=== PATIENT | male | born 1970 | race Caucasian/White ===

== ENCOUNTER 2017-06-12 14:28 | Emergency (ER) | payer MEDICAID ==
--- NOTE | 2017-06-12 14:56 | Emergency Department Record ---
History of Present Illness - General Chief Complaint: Headache Migraine Stated Complaint: MIGRAINE Time Seen by Provider: 06/12/17 14:54 Source: Patient Mode of Arrival: Ambulatory Limitations: No limitations - History of Present Illness Initial Comments: 46 yo male presents with a headache. He states he has migraines. He in under the care of [facility] headache specialist Dr Wolfe (sp?). He states he has had a headache every single day for at least three years. His pain level fluctuates between 4/10 to 10/10. For the last week it has not been well controlled. He had recent cervical injections that only temporarily helped. His PCP is in [place]. He is light sensitive and mild nausea. No new injury. NO fever. No confusion. MD Complaint: Headache, "Migraine" -: Days(s) Onset Description: Gradual Location: Frontal Quality: Aching, Similar to previous headaches Consistency: Constant Improves With: Nothing Worsens With: Light Associated Symptoms: Photophobia Treatments Prior to Arrival: Prescription analgesic - Related Data Home Medications Medication Instructions Recorded Confirmed Last Taken Hydroxyzine HCl 25 mg PO QHS 06/12/17 06/12/17 1 Day Ago ~06/11/17 Losartan Potassium 50 mg PO DAILY 06/12/17 06/12/17 1 Day Ago ~06/11/17 Methocarbamol [Robaxin] 1 tab PO BID 06/12/17 06/12/17 1 Day Ago ~06/11/17 Allergies Allergy/AdvReac Type Severity Reaction Status Date / Time No Known Drug Intolerances Allergy Unknown HYPERSENSIT Verified 06/12/17 14:56 IVITY Review of Systems Constitutional: Denies: Chills, Fever, Malaise, Weakness Eyes: Denies: Eye discharge, Eye pain, Photophobia, Vision change ENT: Denies: Congestion, Ear pain, Epistaxis, Throat pain Respiratory: Denies: Cough, Dyspnea, Hemoptysis Cardiovascular: Denies: Chest pain, Palpitations, Syncope Endocrine: Denies: Fatigue, Polydipsia, Polyuria Gastrointestinal: Reports: Nausea. Denies: Diarrhea, Vomiting Genitourinary: Denies: Dysuria, Frequency, Urgency Musculoskeletal: Reports: Back pain, Neck pain. Denies: Arthralgia Skin: Denies: Bruising, Change in color, Rash Neurological: Reports: Headache. Denies: Confusion, Numbness, Paresthesias, Tingling, Tremors, Vertigo, Weakness Psychiatric: Denies: Anxiety Hematological/Lymphatic: Denies: Blood Clots, Easy bleeding, Easy bruising, Swollen glands Physical Exam - General General Appearance: Alert, Oriented x3, Cooperative, No acute distress Limitations: No limitations - Head Head exam: Normal inspection - Eye Eye exam: Normal appearance, PERRL, EOMI. negative: Conjunctival injection, Nystagmus, Periorbital swelling, Scleral icterus - ENT ENT exam: Normal exam, Mucous membranes moist Ear exam: Normal external inspection Nasal Exam: Normal inspection Mouth exam: Normal external inspection Teeth exam: Normal inspection Throat exam: Normal inspection - Neck Neck exam: Normal inspection, Full ROM. negative: Tenderness - Respiratory Respiratory exam: Normal lung sounds bilaterally. negative: Respiratory distress - Cardiovascular Cardiovascular Exam: Regular rate, Normal rhythm, Normal heart sounds - GI/Abdominal GI/Abdominal exam: Soft. negative: Tenderness - Rectal Rectal exam: Deferred - exam: Deferred - Extremities Extremities exam: Normal inspection, Full ROM, Normal capillary refill. negative: Tenderness - Back Back exam: Reports: Normal inspection, Full ROM. Denies: Muscle spasm, Rash noted, Tenderness - Neurological Neurological exam: Alert, CN II-XII intact, Normal gait, Oriented X3, Reflexes normal. negative: Altered, Motor sensory deficit - Psychiatric Psychiatric exam: Normal affect, Normal mood - Skin Skin exam: Dry, Intact, Normal color, Warm Course - Reevaluation(s) Reevaluation #1: The patient is doing much better The headache is well controlled The nausea is gone and he is no longer light sensitive I asked him to call his headache specialist for very close follow up 06/12/17 16:43 Disposition Disposition: Discharge Clinical Impression: Migraine Disposition: Home, Self-Care Condition: (1) Good Instructions: Migraine Headache (ED) Additional Instructions: Call your headache specialist today to schedule close follow up of your chronic headache Rest and stay well hydrated Forms: Patient Portal Access Time of Disposition: 16:44 Quality - Quality Measures Quality Measures: Headache (All Ages) - Headache: Neuroimaging Quality Measure: Measure #419: Overuse of Neuroimaging ICD10 Codes Entered: Yes Neurological Exam: Patient had a normal neurological exam. [G9535] Headache: Use of Neuroimaging: < CTA, CT, MRA or MRI was NOT ordered > [G9534] - Blood Pressure Screening Does Patient Have Any of the Following: No Blood Pressure Classification: Normal BP Reading Systolic Measurement: 109 Diastolic Measurement: 69 Screening for High Blood Pressure: < Normal BP, F/U Not Required > [G0225]
[2017-06-12] MEDS ORDERED: 0.9 % SODIUM CHLORIDE 1,000 ML BAG IV ONE (15:15)
[2017-06-12] MEDS ORDERED: DIPHENHYDRAMINE HCL IV 50 MG/ML VIAL IVP ONE (15:15)
[2017-06-12] MEDS ORDERED: METOCLOPRAMIDE HCL 10 MG/2 ML VIAL IVP ONE (15:15)
[2017-06-12] MEDS ORDERED: KETOROLAC 30 MG/ML VIAL IVP ONE (15:15)
== END 2017-06-12 16:55 | disposition home or self-care (01) ==
LOC: ER 14:28
DX: G43.909 Migraine, unspecified, not intractable, without status migrainosus (principal); R11.0 Nausea; H53.149 Visual discomfort, unspecified
CPT/HCPCS: 99284 ×2; 96374; 96375; J1885; J1200; J2765; J7030

== ENCOUNTER 2017-07-10 12:06 | Inpatient (IN) | payer MEDICAID ==
[2017-07-10] MEDS ORDERED: 0.9 % SODIUM CHLORIDE 1,000 ML BAG IV ONE ×2 (12:33→13:26)
[2017-07-10] MEDS ORDERED: ONDANSETRON HCL IV 4 MG/2 ML VIAL IVP ONE (12:33)
[2017-07-10] MEDS ORDERED: MORPHINE SULFATE 4MG/ML PREFILLED SYRINGE IVP ONE (12:34)
--- NOTE | 2017-07-10 12:39 | Emergency Department Record ---
History of Present Illness - General Chief Complaint: Abdominal Pain Stated Complaint: ABD PAIN Time Seen by Provider: 07/10/17 12:33 Source: Patient Mode of Arrival: Ambulatory Limitations: No limitations - History of Present Illness Initial Comments: 46 yo male presents with nausea, vomiting and upper abdominal pain that started on . He has been having dry heaves since that time. He reports a prior history three years ago of a Libby Fundoplication with Dr Tong. The pain is in the epigastric area. His last BM was this morning. No fevers. No blood in the stools or in the dry heaves. He has migraines and chronic neck pain as well. These symptoms have been worse since the nausea, vomiting and abdominal pain started. MD Complaint: Abdominal pain Onset/Timin -: Days(s) Location: Epigastric, RUQ Radiation: None Migration to: Epigastric Severity scale (1-10): 10 Quality: Sharp Consistency: Constant Improves With: Nothing Worsens With: Nothing Associated Symptoms: Nausea, Vomiting - Related Data Allergies Allergy/AdvReac Type Severity Reaction Status Date / Time No Known Drug Intolerances Allergy Unknown HYPERSENSIT Verified 07/10/17 12:26 [employer] Travel Screening - Travel/Exposure Within Last 30 Days Have you traveled within the last 30 days?: No Review of Systems Constitutional: Reports: Weakness. Denies: Chills, Fever, Malaise Eyes: Denies: Eye discharge, Eye pain, Photophobia, Vision change ENT: Denies: Congestion, Throat pain Respiratory: Denies: Cough, Dyspnea, Hemoptysis, Wheezes Cardiovascular: Denies: Chest pain, Palpitations, Syncope Endocrine: Denies: Fatigue, Polydipsia, Polyuria Gastrointestinal: Reports: Abdominal pain, Nausea, Vomiting. Denies: Diarrhea, Hematemesis, Hematochezia Genitourinary: Denies: Dysuria, Frequency, Hematuria Musculoskeletal: Denies: Arthralgia, Back pain, Joint swelling, Myalgia Skin: Denies: Bruising, Change in color, Rash Neurological: Reports: Headache (migraines). Denies: Numbness, Weakness Psychiatric: Reports: Anxiety Hematological/Lymphatic: Denies: Blood Clots, Easy bleeding, Easy bruising, Swollen glands Past Medical History - SOCIAL HISTORY Smoking Status: Never smoker Alcohol Use: None Drug Use: None - RESPIRATORY Hx Respiratory Disorders: No - CARDIOVASCULAR Hx Cardio Disorders: Yes Hx Hypertension: Yes - NEURO Hx Neuro Disorders: Yes Hx Headaches: Yes - GI Hx GI Disorders: Yes Hx Reflux: Yes Hx Hiatal Hernia: Yes Hx Ulcer: Yes - Hx Genitourinary Disorders: No - ENDOCRINE Hx Endocrine Disorders: No Hx Diabetes: No Hx Thyroid Disease: No - MUSCULOSKELETAL Hx Arthritis: Yes - PSYCH Hx Psych Problems: Yes Hx Anxiety: Yes Hx Depression: Yes - HEMATOLOGY/ONCOLOGY Hx Hematology/Oncology Disorders: No Family Medical History Any Significant Family History?: No Physical Exam - General General Appearance: Alert, Oriented x3, Cooperative, No acute distress, Other ( Dry heaving during H and P) Limitations: No limitations - Head Head exam: Atraumatic, Normal inspection - Eye Eye exam: Normal appearance, PERRL. negative: Conjunctival injection, Scleral icterus - ENT ENT exam: Normal exam Ear exam: Normal external inspection Nasal Exam: Normal inspection Mouth exam: Normal external inspection Teeth exam: Normal inspection Throat exam: Normal inspection - Neck Neck exam: Normal inspection, Full ROM. negative: Tenderness - Respiratory Respiratory exam: Normal lung sounds bilaterally. negative: Respiratory distress - Cardiovascular Cardiovascular Exam: Regular rate, Normal rhythm, Normal heart sounds - GI/Abdominal GI/Abdominal exam: Soft, Tenderness (epigatric tenderness, The abdomen is soft and non distended). negative: Distended, Guarding - Rectal Rectal exam: Deferred - exam: Deferred - Extremities Extremities exam: Normal inspection, Full ROM, Normal capillary refill. negative: Tenderness - Back Back exam: Reports: Normal inspection, Full ROM. Denies: Muscle spasm, Rash noted, Tenderness - Neurological Neurological exam: Alert, Normal gait, Oriented X3 - Psychiatric Psychiatric exam: Normal affect, Normal mood - Skin Skin exam: Dry, Intact, Normal color, Warm Course Vital Signs 07/10/17 12:28 Temperature 97.8 F Pulse Rate 95 H Respiratory 24 Rate Blood Pressure 120/94 Pulse Ox 99 - Reevaluation(s) Reevaluation #1: 07/10/17 13:00 CBC reviewed WBC is 16.3 07/10/17 13:27 The HCO3 is 17 with AG 27 The CMP is otherwise normal The Lipase is normal 07/10/17 14:[address] scan was negative for acute process. 07/10/17 15:01 The results were reviewed with the patient and his family He is much improved but still with nausea. Given his dehydration on the labs I recommend admission, hydration and re-evaluation slowly advancing PO as toleration. Medical Decision Making - Lab Data Result diagrams: 07/10/17 12:20 07/10/17 12:20 Disposition Disposition: Admit Clinical Impression: Nausea and vomiting, Dehydration, Abdominal pain Disposition: Still a Patient at [facility] Decision to Admit: Admit from ER Decision to Admit Date: 07/10/17 Decision to Admit Time: 15:02 Condition: (2) Stable Time of Disposition: 15:02 Quality - Quality Measures Quality Measures: Headache (All Ages) - Headache: Neuroimaging Quality Measure: Measure #419: Overuse of Neuroimaging ICD10 Codes Entered: Yes Neurological Exam: Patient had a normal neurological exam. [G9535] Headache: Use of Neuroimaging: < CTA, CT, MRA or MRI was NOT ordered > [G9534] - Blood Pressure Screening Does Patient Have Any of the Following: Active Dx of HTN Blood Pressure Classification: Hypertensive Reading Systolic Measurement: 120 Diastolic Measurement: 94 Screening for High Blood Pressure: Patient Exclusion, Hx of HTN [G9744]
[2017-07-10 12:49] LABS: HEMATOCRIT 48.6 % (42.0-52.0); HEMOGLOBIN 17.2 gm/dl (14.0-18.0); MEAN CELL VOLUME 88.2 fl (81-97); MEAN CORPUSCULAR HEMOGLOBIN 31.2 pg (27-33); MEAN CORPUSCULAR HGB CONC 35.4 g/dl (32-36); MEAN PLATELET VOLUME 11.6 fl (7.4-10.4); PLATELET COUNT 299 K/uL (130-400); RED BLOOD COUNT 5.51 M/uL (4.40-5.70); RED CELL DISTRIBUTION WIDTH 13.1 % (11.5-14.5); WHITE BLOOD COUNT W/O DIFF 16.3 K/uL (4.2-12.2)
[2017-07-10 13:08] LABS: BLOOD UREA NITROGEN 15 mg/dL (6-20); CREATININE 0.9 mg/dL (0.7-1.2); EST GLOMERULAR FILTRATION RATE > 60 mL/min
[2017-07-10 13:09] LABS: TOTAL PROTEIN 7.8 g/dL (6.6-8.7)
[2017-07-10 13:11] LABS: GLUCOSE,RANDOM 119 mg/dL (74-109)
[2017-07-10 13:13] LABS: ALT/SGPT 12 U/L (<41)
[2017-07-10 13:14] LABS: ALBUMIN 5.2 g/dL (4.0-5.0); ALKALINE PHOSPHATASE 85 U/L (40-129); AST/SGOT 19 U/L (10.0-50.0); LIPASE 48 U/L (13-60)
[2017-07-10] MEDS ORDERED: MECLIZINE 25 MG TABLET PO ONE (14:31)
[2017-07-10] MEDS ORDERED: 0.9 % SODIUM CHLORIDE 1000ML 1,000 ML IV PRN (17:27)
[2017-07-10] MEDS ORDERED: MORPHINE SULFATE 4MG/ML PREFILLED SYRINGE IVP PRN (17:41)
[2017-07-10] MEDS ORDERED: CYCLOBENZAPRINE 10MG TABLET PO PRN (17:51)
--- NOTE | 2017-07-10 18:01 | History & Physical ---
History of Present Illness - Date of Service Date of Service for History & Physical: 07/10/17 - History of Present Illness Admitting Diagnosis: nausea, vomting, abdominal pain History of Present Illness: 46 yo male presents for N/V and epigastric pain x 4 days. PMH Libby Fundoplication (Dr Tong), [address] Mcmillan, chronic IGLESIAS. Pt reports nausea and vomiting bile since . Unable to burp since Libby fundoplicaiton. Reports extreme wretching needed to bring up bile and abd pain r /t to this. No sick contacts. Denies blood in stools or emesis. ER 97.8F, HR 94, RR 24, 99% RA B 120/94 WBC 16.3, Hgb 17.2, Hct 48.6, Plt 299 NA 143, K 4.3, CL 99, CO2 17, Anion gap 27, BUn 15, creatinine 0.9, GFR >60, glucose 119, Lipase 48 LFT WNL UA pending 2L NS bolus, 4mg morphine, 4mg Zofran IVP Abd CT audio clip reviewed, no acute process 07/11/17 Pt in mild distress, appears dehydrated- dry lips, pale, warm and dry. Abd TTP epigastric and RUQ. Bowel sounds hypoactive. POC, NPO except ice chips tonight, D5NS@125, protinix IVPB BID, tylenol IVPB, zofran 4mg and morphine 2mg IVPB PRN q4 hrs. PCP Fatmata Wang NP Specialist: Zayra (GI) Jean Pierre ([facility]), Deyanira (gallbladder removal) Travel Screening - Travel/Exposure Within Last 30 Days Have you traveled within the last 30 days?: No Review of Systems Constitutional: Reports: Weakness. Denies: Chills, Fever, Malaise Eyes: Denies: Eye discharge, Eye pain, Photophobia, Vision change ENT: Denies: Congestion, Throat pain Respiratory: Denies: Cough, Dyspnea, Hemoptysis, Wheezes Cardiovascular: Denies: Chest pain, Palpitations, Syncope Endocrine: Denies: Fatigue, Polydipsia, Polyuria Gastrointestinal: Reports: Abdominal pain, Nausea, Vomiting. Denies: Diarrhea, Hematemesis, Hematochezia Genitourinary: Denies: Dysuria, Frequency, Hematuria Musculoskeletal: Denies: Arthralgia, Back pain, Joint swelling, Myalgia Skin: Denies: Bruising, Change in color, Rash Neurological: Reports: Headache (migraines- chronic). Denies: Numbness, Weakness Psychiatric: Reports: Anxiety Hematological/Lymphatic: Denies: Blood Clots, Easy bleeding, Easy bruising, Swollen glands Past Medical History - SOCIAL HISTORY Smoking Status: Never smoker Alcohol Use: None Drug Use: None - RESPIRATORY Hx Respiratory Disorders: No - CARDIOVASCULAR Hx Cardio Disorders: Yes Hx Hypertension: Yes - NEURO Hx Neuro Disorders: Yes Hx Headaches: Yes - GI Hx GI Disorders: Yes Hx Reflux: Yes Hx Hiatal Hernia: Yes Hx Ulcer: Yes - Hx Genitourinary Disorders: No - ENDOCRINE Hx Endocrine Disorders: No Hx Diabetes: No Hx Thyroid Disease: No - MUSCULOSKELETAL Hx Arthritis: Yes - PSYCH Hx Psych Problems: Yes Hx Anxiety: Yes Hx Depression: Yes - HEMATOLOGY/ONCOLOGY Hx Hematology/Oncology Disorders: No Family Medical History Any Significant Family History?: No H&P Meds/Allergies - Allergies Allergies: Allergies Allergy/AdvReac Type Severity Reaction Status Date / Time No Known Drug Intolerances Allergy Unknown HYPERSENSIT Verified 07/10/17 12:26 IVITY - Active Medications Active Medications: Current Medications Acetaminophen (Ofirmev) 1,000 mg in 100 mls @ 400 mls/hr IVPB Q6H ALEXSANDRA Dextrose/Sodium Chloride () 1,000 mls @ 125 mls/hr IV .Q8H PRN PRN Reason: LARGE VOLUME IV Non-Formulary Medication (Hydroxyzine Hcl [Hydroxyzine Hcl]) 25 mg PO QHS [facility] Non-Formulary Medication (Losartan Potassium [Losartan Potassium]) 50 mg PO DAILY [facility] Non-Formulary Medication (Methocarbamol [Robaxin]) 1 tab PO BID ALEXSANDRA Ondansetron HCl (Zofran) 4 mg IVP Q4H PRN PRN Reason: NAUSEA Pantoprazole Sodium (Protonix Iv) 40 mg IV Q12H ALEXSANDRA Physical Exam - Vital Signs Vital Signs: Vital Signs - Last 24 Hrs Temp Pulse Pulse Resp BP BP Pulse Ox 07/10/17 16:13 91/51 07/10/17 15:41 73 18 86/48 99 07/10/17 14:23 74 24 97/50 94 L 07/10/17 12:28 97.8 F 95 H 24 120/94 99 - General General Appearance: Alert, Oriented x3, Cooperative, Mild distress, Other (Dry heaving during H and P) Limitations: No limitations - Head Head exam: Atraumatic, Normal inspection - Eye Eye exam: Normal appearance, PERRL. negative: Conjunctival injection, Scleral icterus - ENT ENT exam: Normal exam Ear exam: Normal external inspection Nasal Exam: Normal inspection Mouth exam: Normal external inspection Teeth exam: Normal inspection Throat exam: Normal inspection - Neck Neck exam: Normal inspection, Full ROM. negative: Tenderness - Respiratory Respiratory exam: Normal lung sounds bilaterally. negative: Respiratory distress - Cardiovascular Cardiovascular Exam: Regular rate, Normal rhythm, Normal heart sounds Peripheral Pulses: 2+: Radial (R), Radial (L), Dorsalis Pedis (R), Dorsalis Pedis (L) - GI/Abdominal GI/Abdominal exam: Soft, Tenderness (epigatric tenderness, The abdomen is soft and non distended). negative: Distended, Guarding - Rectal Rectal exam: Deferred - exam: Deferred - Extremities Extremities exam: Normal inspection, Full ROM, Normal capillary refill. negative: Tenderness - Back Back exam: Reports: Normal inspection, Full ROM. Denies: Muscle spasm, Rash noted, Tenderness - Neurological Neurological exam: Alert, Normal gait, Oriented X3 - Psychiatric Psychiatric exam: Normal affect, Normal mood - Skin Skin exam: Dry, Intact, Normal color, Warm Results - Labs Result Diagrams: 07/10/17 12:20 07/10/17 12:20 Labs Last 24 Hours: Laboratory Results - last 24 hr 07/10/17 07/10/17 12:20 12:20 WBC 16.3 H RBC 5.51 Hgb 17.2 Hct 48.6 MCV 88.2 MCH 31.2 MCHC 35.4 RDW 13.1 Plt Count 299 MPV 11.6 H Neutrophils % 81.0 H Eosinophils % Not Reportable Basophils % Not Reportable Lymphocytes 13.0 L Monocytes 5.0 Eosinophil Count 1.0 Sodium 143 Potassium 4.3 Chloride 99 Carbon Dioxide 17.0 L Anion Gap 27.0 H BUN 15 Creatinine 0.9 Estimated GFR > 60 Random Glucose 119 H Calcium 10.0 Total Bilirubin 0.60 AST 19 ALT 12 Alkaline Phosphatase 85 Total Protein 7.8 Albumin 5.2 H Globulin 2.6 Albumin/Globulin Ratio 2.0 H Lipase 48 - Imaging and Cardiology CT scan - abdomen Status: Report reviewed (audio clip reviewed) VTE H&P Assessment - Risk for VTE Risk for VTE: Yes Risk Level: Very Low Risk Assessment Date: 07/10/17 Risk Assessment Time: 18:07 VTE Orders Placed or Will Be Placed: No VTE Reason for No Prophylaxis: Not Indicated Plan - Inpatient Certification Inpatient Certification: Admit to inpatient care: Based on my medical assessment, after consideration of patient's risk factors (age, co-morbidities and patient presenting symptoms and acuity), I expect that this patient will remain in the hospital greater than or equal to two midnights and that the services needed warrant inpatient care because: Patient Risk Factors: dehydration, electrolyte monitoring, IV medication mgt Estimated length of stay: The patient may reasonably be expected to be discharged or transferred to a hospital within 96 hours after admission to [facility]. Services needed: IVF, IV medications, lab monitoring Post hospital care (if known): [] I certify that my determination is in accordance with my understanding of Medicare requirements for reasonable and necessary inpatient services. 07/10/17 18:02 - Detailed Diagnosis and Plan (1) Abdominal pain Current Visit: Yes Status: Acute Base Code: R10.9 - UNSPECIFIED ABDOMINAL PAIN Comment: 07/10/17 -epigastric tenderness and pain -zofran, morphine IVP PRN -protonix IVPB BID -abd CT audio clip negative for acute process (2) Dehydration Current Visit: Yes Status: Acute Base Code: E86.0 - DEHYDRATION Comment: -D5NS@125 -repeat AM labs -NPO except ice chips -CLD in the AM (3) Nausea and vomiting Current Visit: Yes Status: Acute Base Code: R11.2 - NAUSEA WITH VOMITING, UNSPECIFIED Comment: 07/10/17 -Zofran 4mg IVP PRN -NPO, advance in the AM CLD -UA pending
[2017-07-10] MEDS: PANTOPRAZOLE SODIUM IV 40 MG VIAL IV SCH (18:55)
[2017-07-10] MEDS: ACETAMINOPHEN 1,000 MG/100 ML BTL IVPB SCH (18:58)
[2017-07-10] MEDS: DEXTROSE 5 % AND 0.9 % NACL 1,000 ML IV PRN (19:00)
[2017-07-10] MEDS ORDERED: HYDROXYZINE PAMOATE 25 MG CAPSULE PO SCH (22:00)
[2017-07-11] MEDS: ACETAMINOPHEN 1,000 MG/100 ML BTL IVPB SCH ×4 (00:25→17:56)
[2017-07-11 02:23] LABS: URINE APPEARANCE CLEAR; URINE BILIRUBIN SMALL (NEGATIVE); URINE BLOOD NEGATIVE (NEGATIVE); URINE COLOR YELLOW; URINE GLUCOSE (UA) NEGATIVE (NEGATIVE); URINE KETONE 40 mg/dL (NEGATIVE); URINE LEUKOCYTE ESTERASE NEGATIVE (NEGATIVE); URINE NITRITE NEGATIVE (NEGATIVE); URINE PROTEIN NEGATIVE (NEGATIVE); URINE UROBILINOGEN 0.2 E.U./dL (0.20 - 1.00)
[2017-07-11] MEDS: DEXTROSE 5 % AND 0.9 % NACL 1,000 ML IV PRN ×3 (03:35→19:48)
[2017-07-11] MEDS: PANTOPRAZOLE SODIUM IV 40 MG VIAL IV SCH ×2 (06:38→17:56)
[2017-07-11 07:08] LABS: BASO % 0.6 % (0-6); EOS % 2.6 % (0-6); GRAN % 54.1 % (47-80); HEMATOCRIT 39.7 % (42.0-52.0); HEMOGLOBIN 13.2 gm/dl (14.0-18.0); LYMPH % 30.8 % (16-45); MEAN CELL VOLUME 91.9 fl (81-97); MEAN CORPUSCULAR HGB CONC 33.2 g/dl (32-36); MEAN PLATELET VOLUME 10.5 fl (7.4-10.4); MONO % 11.9 % (0-9); PLATELET COUNT 199 K/uL (130-400); RED BLOOD COUNT 4.32 M/uL (4.40-5.70); WHITE BLOOD COUNT W/O DIFF 5.5 K/uL (4.2-12.2)
--- NOTE | 2017-07-11 07:15 | CT SCAN REPORT ---
EXAM: EMERGENCY CT OF THE ABDOMEN AND PELVIS WITHOUT CONTRAST HISTORY: UPPER ABDOMINAL PAIN, VOMITING, PRIOR AIDA FUNDOPLICATION FOUR YEARS AGO. CHOLECYSTECTOMY. TECHNIQUE: Axial CT scan of the abdomen and pelvis was performed without oral or IV contrast. Comparison: No prior CT of the abdomen or pelvis with which to compare. FINDINGS: The gallbladder is not identified consistent with the surgical history. There is a single tiny calcification in the upper pole of the right kidney likely representing a currently nonobstructing intrarenal calculus on the right. None seen on the left. No hydronephrosis or hydroureter seen on either side with no definite ureteral calculus seen on either side and no bladder calculus evident. There is some mild prostate calcification present. Evaluation of the bowel and viscera is considerably limited without oral cor IV contrast. Given this limitation, no definite hepatic, splenic, adrenal, pancreatic, or renal mass identified. No appendicitis evident. No free intraperitoneal air or free intraperitoneal fluid identified. IMPRESSION: 1. SINGLE TINY NONOBSTRUCTING CALCULUS IN THE RIGHT KIDNEY. NONE SEEN ON THE LEFT. 2. SOME PROSTATE CALCIFICATION. 3. POSTOP CHOLECYSTECTOMY. 4. THE APPENDIX APPEARS NEGATIVE. NO FREE AIR OR FREE FLUID EVIDENT. JOB NUMBER: [id number] [facility]
[2017-07-11 07:16] LABS: MEAN CORPUSCULAR HEMOGLOBIN 30.5 pg (27-33)
[2017-07-11 07:27] LABS: ALB/GLOB RATIO 2.3 (1.1-1.8); ALBUMIN 3.5 g/dL (4.0-5.0); ALKALINE PHOSPHATASE 59 U/L (40-129); ALT/SGPT 67 U/L (<41); AST/SGOT 57 U/L (10.0-50.0); BLOOD UREA NITROGEN 9 mg/dL (6-20); CREATININE 0.8 mg/dL (0.7-1.2); EST GLOMERULAR FILTRATION RATE > 60 mL/min; GLUCOSE,RANDOM 97 mg/dL (74-109)
[2017-07-11] MEDS: ONDANSETRON HCL IV 4 MG/2 ML VIAL IVP PRN ×2 (08:42→19:52)
[2017-07-11] MEDS ORDERED: PANTOPRAZOLE SODIUM IV 40 MG VIAL IV SCH (10:00)
[2017-07-11] MEDS ORDERED: LOSARTAN POTASSIUM 25 MG TABLET PO SCH (10:00)
--- NOTE | 2017-07-11 19:54 | Discharge Summary ---
Providers Discharge Summary Date: 07/11/17 Date of admission: 07/10/17 17:00 Expected Date of Discharge: 07/11/17 Attending physician: MARSHA CROWLEY Primary care physician: RADHA WANG N.P. Physical Exam - Vital Signs Vital Signs: Vital Signs - Last 24 Hrs Temp Pulse Resp BP BP Pulse Ox 07/11/17 17:00 97.6 F 49 L 18 111/61 98 07/11/17 11:16 97.3 F L 100/71 07/11/17 08:36 16 07/11/17 08:09 97.3 F L 80 16 100/71 99 07/11/17 01:00 98.1 F 66 16 93/52 98 - General General Appearance: Alert, Oriented x3, Cooperative, Mild distress Limitations: No limitations - Head Head exam: Atraumatic, Normal inspection - Eye Eye exam: Normal appearance, PERRL. negative: Conjunctival injection, Scleral icterus - ENT ENT exam: Normal exam Ear exam: Normal external inspection Nasal Exam: Normal inspection Mouth exam: Normal external inspection Teeth exam: Normal inspection Throat exam: Normal inspection - Neck Neck exam: Normal inspection, Full ROM. negative: Tenderness - Respiratory Respiratory exam: Normal lung sounds bilaterally. negative: Respiratory distress - Cardiovascular Cardiovascular Exam: Regular rate, Normal rhythm, Normal heart sounds Peripheral Pulses: 2+: Radial (R), Radial (L), Dorsalis Pedis (R), Dorsalis Pedis (L) - GI/Abdominal GI/Abdominal exam: Soft, Tenderness (epigatric tenderness, The abdomen is soft and non distended). negative: Distended, Guarding - Rectal Rectal exam: Deferred - exam: Deferred - Extremities Extremities exam: Normal inspection, Full ROM, Normal capillary refill. negative: Tenderness - Back Back exam: Reports: Normal inspection, Full ROM. Denies: Muscle spasm, Rash noted, Tenderness - Neurological Neurological exam: Alert, Normal gait, Oriented X3 - Psychiatric Psychiatric exam: Normal affect, Normal mood - Skin Skin exam: Dry, Intact, Normal color, Warm Hospitalization - Hospitalization Admission Diagnosis: nausea, vomting, abdominal pain - Problem List/Discharge Diagnosis (1) Abdominal pain Current Visit: Yes Status: Acute Base Code: R10.9 - UNSPECIFIED ABDOMINAL PAIN Comment: 07/11/17 -epigastric tenderness and pain -zofran, morphine IVP PRN -protonix IVPB BID -abd CT audio clip negative for acute process -Pt. is still unable to tolerate clear liquids, spoke with Dr. Tong ( surgeon for pt's libby fundoplication) and he recommends transfer to [facility] for upper GI, he will assume care. (2) Dehydration Current Visit: Yes Status: Acute Base Code: E86.0 - DEHYDRATION Comment: -D5NS@125 -pos. ketones on UA, negative for infection -Pt. not tolerating clear liquids (3) Nausea and vomiting Current Visit: Yes Status: Acute Base Code: R11.2 - NAUSEA WITH VOMITING, UNSPECIFIED Comment: 07/11/17 -Zofran 4mg IVP PRN -Clear liquids- pt. is not tolerating clear liquids well at this time, worsening nausea. No vomiting, but pt. is dry heaving. -Plan to transfer to [facility] and Dr. Tong will assume care (4) Full code status Current Visit: Yes Status: Acute Base Code: Z78.9 - OTHER SPECIFIED HEALTH STATUS Comment: 07/11/17: pt. remains full code status - Disposition Transfer to [facility], Dr. Tong accepting care - Hospitalization Course Disposition: Acute Care Hospital Transfer Hospital Course: 46 yo male presents for N/V and epigastric pain x 4 days. PMH Libby Fundoplication (Dr Tong), [address] Mcmillan, chronic IGLESIAS. Pt reports nausea and vomiting bile since . Unable to burp since Libby fundoplicaiton. Reports extreme wretching needed to bring up bile and abd pain r /t to this. No sick contacts. Denies blood in stools or emesis. ER 97.8F, HR 94, RR 24, 99% RA B 120/94 WBC 16.3, Hgb 17.2, Hct 48.6, Plt 299 NA 143, K 4.3, CL 99, CO2 17, Anion gap 27, BUn 15, creatinine 0.9, GFR >60, glucose 119, Lipase 48 LFT WNL UA pending 2L NS bolus, 4mg morphine, 4mg Zofran IVP Abd CT audio clip reviewed, no acute process. 07/10/17 Pt in mild distress, appears dehydrated- dry lips, pale, warm and dry. Abd TTP epigastric and RUQ. Bowel sounds hypoactive. POC, NPO except ice chips tonight, D5NS@125, protinix IVPB BID, tylenol IVPB, zofran 4mg and morphine 2mg IVPB PRN q4 hrs. 07/11/17 Pt. remains in mild distress. He had tried clear liquids throughout the day and he has been unable to tolerate without worsening abdominal pain and nausea. He has also tried to ambulate to possibly relieve abdominal pressure with no relief. Vital signs remain stable. Continuing D5NS @ 125/hr. I spoke with pt. regarding his past GI history and libby fundoplication- pt. states that he has required dilitations about every 3 months since his libby, he is unsure of the date of his last dilitation. I called Dr. Tong and discussed the case with him, he recommends transfer to [facility] for care and pursue an upper GI series (GI unavailable at [facility] until 07/20). Planning transfer this evening. PCP Fatmata Wang NP Specialist: Zayra (GI) Jean Pierre ([facility] [place] [facility]), Deyanira (gallbladder removal) Procedures: Imaging and X-Rays 07/10/17 12:34 ABDOMEN/PELVIS WO CONTRAST [CT] Stat Abnormal Labs: Abnormal Lab Results 07/10/17 07/10/17 07/11/17 Range/Units 12:20 12:20 02:24 WBC 16.3 H (4.2-12.2) K/uL RBC (4.40-5.70) M/uL Hgb (14.0-18.0) gm/dl Hct (42.0-52.0) % MPV 11.6 H (7.4-10.4) fl Neutrophils % 81.0 H (47-80) % Monocytes % (0-9) % Lymphocytes 13.0 L (16-45) % Carbon Dioxide 17.0 L (22-29) mmol/L Anion Gap 27.0 H (7-16) Random Glucose 119 H (74-109) mg/dL Calcium (8.6-10.0) mg/dL AST (10.0-50.0) U/L ALT (<41) U/L Total Protein (6.6-8.7) g/dL Albumin 5.2 H (4.0-5.0) g/dL Albumin/Globulin Ratio 2.0 H (1.1-1.8) Urine Ketones 40 mg/dl H (NEGATIVE) Urine Bilirubin Small H (NEGATIVE) 07/11/17 07/11/17 Range/Units 06:58 06:58 WBC (4.2-12.2) K/uL RBC 4.32 L (4.40-5.70) M/uL Hgb 13.2 L (14.0-18.0) gm/dl Hct 39.7 L (42.0-52.0) % MPV 10.5 H (7.4-10.4) fl Neutrophils % (47-80) % Monocytes % 11.9 H (0-9) % Lymphocytes (16-45) % Carbon Dioxide (22-29) mmol/L Anion Gap (7-16) Random Glucose (74-109) mg/dL Calcium 8.2 L (8.6-10.0) mg/dL AST 57 H (10.0-50.0) U/L ALT 67 H (<41) U/L Total Protein 5.0 L (6.6-8.7) g/dL Albumin 3.5 L (4.0-5.0) g/dL Albumin/Globulin Ratio 2.3 H (1.1-1.8) Urine Ketones (NEGATIVE) Urine Bilirubin (NEGATIVE) Condition at Discharge: (2) Stable VTE Discharge VTE Reason For No Overlap Therapy: Not Indicated (Mobility not impaired) Discharge Medications - Discharge Medications Home Medications: Ambulatory Orders Hydroxyzine HCl 25 mg PO QHS 06/12/17 [Last Taken 1 Day Ago ~06/11/17] Losartan Potassium 50 mg PO DAILY 06/12/17 [Last Taken 1 Day Ago ~06/11/17] Methocarbamol [Robaxin] 1 tab PO BID 06/12/17 [Last Taken 1 Day Ago ~06/11/17] Ondansetron [Zuplenz] 8 mg PO Q8HR 07/10/17 [Last Taken Unknown] Discharge Plan - Discharge Instructions Activity at Discharge: Resume Usual Activities As Tolerated Diet at Discharge: Other (clear liquid) Quality Measures - Quality Measures Quality Measures: Documentation of Current Medications in Medical Record, Screening for High Blood Pressure and F/U Documented - Current Medications Quality Measure: Measure #130: Documentation of Current Medications Documentation of Current Medications: <Current Medications Documented/Reviewed> [G0480] - Blood Pressure Screening Quality Measure: Screening for High Blood Pressure and Follow-Up Documented Does Patient Have Any of the Following: No Blood Pressure Classification: Normal BP Reading Systolic Measurement: 100 Diastolic Measurement: 71 Screening for High Blood Pressure: < Normal BP, F/U Not Required > [G8783] - Elder Abuse Suspicion Index EASI Reference Information: Alfredito QUINTANA, Lindsey C, Keena D, Gerardo Cai.Development and validation of a tool to assist physicians identification of elder abuse: The Elder Abuse Suspicion Index (EASI ). Journal of Elder Abuse and Neglect, 2008; 20 (3): 276-300.
== END 2017-07-11 21:00 | disposition short-term general hospital (02) | DRG 392 ==
LOC: ER 12:06 → MEDSURG 17:00
PROVIDERS: ADMIT Internal Medicine; ATTEND Internal Medicine
DX: R10.13 Epigastric pain (principal); E86.0 Dehydration; I10 Essential (primary) hypertension; K21.9 Gastro-esophageal reflux disease without esophagitis; K44.9 Diaphragmatic hernia without obstruction or gangrene; M19.90 Unspecified osteoarthritis, unspecified site; Z98.890 Other specified postprocedural states
CPT/HCPCS: 74176; 80053; 81003; 83690; 83735; 85025; 85027; 96361; 96374; 96375; 99223; 99239; 99285; C9113; J2274; J2405; J7030; J7042